=== PATIENT | female | born 1940 | race Caucasian/White ===

== ENCOUNTER 2016-08-22 15:14 | Emergency (ER) | payer OTHER, MEDICARE ==
--- NOTE | 2016-08-22 18:13 | ED ORDER SUMMARY ---
..... Patient: KELLIE HICKS OrderSheet [facility] VisitID: [id number] [address] [place] [address] 75y, F Registration Date/Time: 08/22/2016 ORDER SHEET Weight: 81.6 kg (stated) Allergies: Iodine, "all pain meds" GENERAL ORDERS: Chest 2V Urgent (16:35 08/22/2016 William PARKS) (Ack 16:40 Sd) (17:35 KWilliams R.N.) - (NEEDS CATH UA AND I NEED TO LOOK AT PERINEUM) (16:36 08/22/2016 William PARKS) (17:08 Mercy R.N.) CBC w Diff Urgent (16:36 08/22/2016 William PARKS) (Ack 16:40 Sd) (17:35 Mercy R.N.) UA-Culture if indicated Urgent (16:36 08/22/2016 William PARKS) (Ack 16:40 Sd) (17:08 Deysiams R.N.) CMP Urgent (16:36 08/22/2016 William PARKS) (Ack 16:40 Sd) (17:35 KWkarlaams R.N.) ESR Urgent (16:37 08/22/2016 William PARKS) (Ack 16:40 Sd) (17:35 Deysiams R.N.) MEDICATION ORDERS: IV FLUIDS: ORDER SHEET NOTES: [Electronically signed by Jayce Aceves R.N. (09:04 08/23/2016)] [Electronically signed by Den Rodriguez MD (14:40 08/24/2016)] [Electronically locked/signed by Jayce Aceves R.N. (09:04 08/23/2016)]
--- NOTE | 2016-08-22 18:13 | ED CLINICAL REPORT ---
Clinical Report - Physicians/Mid Levels [facility] [address] [place] [address] 08/22/2016 15:15 Patient: KELLIE KAUR Time Seen: 16:06. Historian- patient and family. Evaluation limited Very tangential historian. HISTORY OF PRESENT ILLNESS Chief Complaint: COUGH, PERINEAL SKIN RASH AND RIGHT ORIENTAL ORTHODOX PAIN. This started several weeks ago; Ms Kaur has 5 unrelated complaints and is still present. (unknown onset). At its maximum, severity described as moderate. When seen in the E.D., severity described as moderate. Modifying factors- (skin tenderness worse with palpation). The patient has had fatigue and weakness. (1. Cough and weak achy for weeks 2. Sore between legs - chronic. Pt arrived with 8 sets of depends on so that she would not wet her son's car. 3. Hurts to chew "infection" on adrenal gland and tender R jew). Similar symptoms previously: None. REVIEW OF SYSTEMS No fever, sore throat, difficulty breathing, chest pain or abdominal pain. No nausea or vomiting. She has had a cough. She has had difficulty with urination (incontinence), with pain during urination. She has had skin rash (perineal). She has had a headache (R jew with tenderness). PAST HISTORY PCP: Dylan BIRCH/Hilary PAST HISTORY See nurses notes. PROBLEMS: GI Bleeding. Gastroesophageal Reflux Disease. DVT - Deep Venous Thrombosis. CVA - Cerebrovascular Accident. --16:45 Rajani Bower RMindiN. ADDITIONAL SURGERIES: Filter. SOCIAL HISTORY Never smoker. No drug use. ADDITIONAL NOTES The nursing notes have been reviewed. PHYSICAL EXAM Vital Signs: 08/22/2016 18:42 BP: 149/90. HR: 80. RR: 16. O2 saturation: 98%. Temp: 97.7 F. 08/22/2016 16:06 BP: 158/116. HR: 72. RR: 20. O2 saturation: 100%. Appearance: (Talkative elderly woman. Fairly well dressed). Eyes: Eyes normal inspection. ENT: Pharynx normal. (Some R jew tenderness by history). Neck: Normal inspection. CVS: Normal heart rate and rhythm. Heart sounds normal. Respiratory: No respiratory distress. Breath sounds normal. Abdomen: No visible injury. Soft and nontender. Back: Normal inspection. : (perineal skin is quite red). Skin: Skin warm. Normal skin color. Extremities: Extremities exhibit normal ROM. Neuro: No alteration in mental status. No cranial nerve deficit. No motor deficit. LABS, X-RAYS, AND EKG Chest X-ray: Infiltrate present. Normal Chest X-Ray. The X-rays were interpreted by the radiologist and contemporaneously by me and discussed with the radiologist. Laboratory Tests: UA-Culture if indicated: (CANDIE: 08/22/2016 17:05) ( MsgRcvd 08/22/2016 17:19) Final results Test Result Flag Units (Reference) URINE COLOR YELLOW URINE APPEARANCE CLEAR URINE GLUCOSE NEGATIVE (NEGATIVE) URINE BILIRUBIN NEGATIVE (NEGATIVE) URINE KETONE NEGATIVE (NEGATIVE) URINE SPECIFIC GRAVITY 1.025 (1.010-1.030) URINE PH 6.0 (5.0-8.0) URINE PROTEIN NEGATIVE (NEGATIVE) URINE UROBILINOGEN 0.2 EU/dL (0.2-1.0) URINE NITRITE NEGATIVE (NEGATIVE) URINE BLOOD NEGATIVE (NEGATIVE) URINE LEUK ESTERASE NEGATIVE (NEGATIVE) URINE RBC 1-3 rbc/hpf (0-1) URINE WBC 3-5 wbc/hpf (0-1) URINE EPITHELIAL CELLS 0-1 EPI/hpf (0-5) URINE BACTERIA MODERATE (2+ TO 3+) (NONE SEEN) URINE COMMENT CULTURE INDICATED 2+ MUCOUSURINE CULTURES ARE SET-UP BASED ON THE FOLLOWING CRITERIA:POSITIVE NITRITEPOSITIVE LEUKOCYTE ESTERASEGREATER THAN 10 WHITE BLOOD CELLSMODERATE (2+) OR GREATER BACTERIA ESR: (CANDIE: 08/22/2016 16:50) ( MsgRcvd 08/22/2016 17:15) Final results Test Result Flag Units (Reference) SED RATE WESTERGREN 37 H mm/hr (0-30) CBC w Diff: (CANDIE: 08/22/2016 16:50) ( MsgRcvd 08/22/2016 16:56) Final results Test Result Flag Units (Reference) WHITE BLOOD COUNT 7.9 K/uL (4.5-11.5) RED BLOOD COUNT 4.67 M/uL (4.00-5.20) HEMOGLOBIN 14.2 gm/dL (12.0-16.0) HEMATOCRIT 42.6 % (36.0-46.0) MEAN CELL VOLUME 91 fL (80-100) MEAN CORPUSCULAR HGB 31 pg (26-34) MEAN CORPUSCULAR HGB CONC 33 g/dL (31-37) RED CELL DISTRIBUTION WIDTH 12.3 % (11.6-14.8) PLATELET COUNT 221 K/uL (150-400) NEUTROPHIL % 78.5 H % (50-75) LYMPH % 13.4 L % (25-40) MONO % 6.6 % (3-14) EOSINOPHIL % 1.2 % (0-4) BASOPHIL % 0.3 % (0-2) CMP: (CANDIE: 08/22/2016 16:50) ( MsgRcvd 08/22/2016 17:13) Final results Test Result Flag Units (Reference) GLUCOSE 184 H mg/dL (70-110) BUN 18 mg/dL (7-18) CREATININE 0.6 mg/dL (0.6-1.3) Estimated GFR >60 mL/min Estimated GFR- >60 mL/min Note: Persistent reduction over 3 months in eGFR<60 mL/min/1.73 m2 defines CKD. Patients with eGFR values>=60 mL/min/1.73 m2 may also have CKD if evidence ofpersistent proteinuria. Additional information may be foundat www.kidney.org. SODIUM 138 mmol/L (136-145) POTASSIUM 3.8 mmol/L (3.5-5.1) CHLORIDE 100 mmol/L (98-107) CARBON DIOXIDE 26 mmol/L (21-32) CALCIUM 9.2 mg/dL (8.5-10.1) TOTAL PROTEIN 6.9 g/dL (6.4-8.2) ALBUMIN 3.4 g/dL (3.3-5.0) BILIRUBIN, TOTAL 1.0 mg/dL (0.0-1.0) ALKALINE PHOSPHATASE 127 H U/L (46-116) AST (SGOT) 27 U/L (15-37) ALT (SGPT) 25 U/L (12-78) Culture, Urine: (CANDIE: 08/22/2016 17:05) ( MsgRcvd 08/24/2016 09:54) Final results Test Result Flag Units (Reference) CULTURE, URINE DATE: 08/24/16 NO GROWTH AT:: NO GROWTH AT 2 DAYS PRELIM REPORT: FINAL REPORT . PROGRESS AND PROCEDURES Course of Care: No gross metabolic abnormalities, pt does have a small L sided infiltrate, definite perineal skin irritation. No temporal arteritis or polymyalgia rheumatica. Pt likely needs increased monitoring of ADLs with help with bathing and perineal care. This is discussed with the patient and her son. Disposition: Discharged. Condition: stable. CLINICAL IMPRESSION Bronchitis. Intertrigo INSTRUCTIONS (YOU HAVE A SKIN YEAST INFECTIOIN BATHE DAILY, ONLY ONE PAIR OF DEPENDS, YOU MIGHT NEED HELP WITH SELF CARE. YOU HAVE A BRONCHITIS NO URINE INFECTION NO DANGEROUS CAUSE OF THE ORIENTAL ORTHODOX PAIN YOUR CHEST XRAY [showed an infliltrate - verbally told to patient by me at the time of discharge.). Prescription Medications: Zithromax 250 mg tablets: take 2 orally today, followed by 1 daily for the next 4 days. No refills. Substitution is permissible. Lotrisone 1% / 0.05% cream: apply to affected areas three times daily. Dispense thirty (30) grams. No refills. Understanding of the discharge instructions verbalized by patient. Follow-up with: Hay Moise MD, [facility], , [place] [address]; Marilyn Meeks MD, [facility], , [place] [address] Follow up. Reason for referral: YOU ASKED FOR A NEW PRIMARY CARE DRMindi (Electronically signed by Den Rodriguez MD 08/24/2016 14:40)
--- NOTE | 2016-08-22 18:13 | ED NURSING NOTES ---
Clinical Report - Nurses [facility] [address] [place] [address] 08/22/2016 15:15 Patient: KELLIE HICKS TRIAGE Triage time 16:06. Acuity: LEVEL 5. Chief Complaint: (burning maggi area.). TYRA COMA SCORE: [place] Coma Scale: 15- eyes open spontaneously (4); best verbal response- oriented x 4 (5); best motor response- obeys commands (6). --16:21 Keren Alexandre R.N. 16:06 08/22/16. BP: 158/116. HR: 72. RR: 20. O2 saturation: 100%. Additional comments: RA, talking non-stop 100%. Pain located in left ankle, maggi area. --16:21 Keren Alexandre R.N. Weight: 81.6 kg stated. Height/Length: 63 inches Per Patient. BMI: 31.9. --16:16 Keren Alexandre R.N. Medications Ramipril Oral 10 mg, daily. --16:15 Keren Alexandre R.N. Allergies Iodine. --16:14 Keren Alexandre R.N. "all pain meds". --16:14 Keren Alexandre R.N. History Historian: patient. Onset. (Pt is quite rambling, hard to pin down what exactly is her main concern is but she is stating "burning vaginits", left ankle pain, not being able to eat as it goes "straight throught" and an "adrenal gland infection". 16:11). ( Pt had no less than eight (8) attends on. Outer 7 layers were dry. Maggi area is quite red and excoriated.). PAST MEDICAL HX: ( Pt very poor historian.). FALL RISK ASSESSMENT: Fall risk assessment completed. No fall risk identified. NUTRITIONAL RISK ASSESSMENT: The nutritional risk assessment revealed no deficiencies. FUNCTIONAL ASSESSMENT: Functional assessment: no impairments noted. LEARNING NEEDS ASSESSMENT: The learning needs assessment revealed no barriers. SKIN INTEGRITY ASSESSMENT: Skin integrity risk assessment completed. No skin integrity risk identified. --16:21 Keren Alexandre R.N. Assessment The patient states feels the same. --16:21 Keren Alexandre R.N. Interventions ID band on patient. --16:21 Keren Alexandre R.N. NURSING PROGRESS NOTES 17:08 08/22/16. Patient ID band checked for patient name and birthdate: patient confirmed. Instructions provided to collect clean catch urine and patient verbalized understanding. Catheterized urine collected with return of yellow-colored clear urine; odor is normal; sample sent to lab for urinalysis and culture. Specimen labeled in the presence of the patient. --17:08 Richelle Celaya R.N. The plan of care for this patient has been created. Head of bed elevated. Call light placed in reach. Bed placed in lowest position. Brakes of bed on. Patient ready for evaluation- chart flagged. --17:08 Richelle Celaya R.N. DISPOSITION / DISCHARGE 18:42 08/22/16. Departure time: 1841. Condition at departure: improved and stable. Ability to learn limited by dementia; teaching performed with the family. Learning barriers note: son. By both RN and MD. Reviewed medication(s) dosing and course information. Prescription(s) given to the territory sales manager medical. Family verbalized understanding. Written instructions provided in Brazilian. The patient was discharged by the physician. She was discharged home and accompanied by family. She left the Emergency Department in a wheelchair and via private vehicle. Family member driving. --18:51 Richelle Celaya R.N. 18:42 08/22/16. BP: 149/90. HR: 80. RR: 16. O2 saturation: 98%. Temp: 97.7 F. Pain level now 0/10. --18:51 Richelle Celaya R.N. Locked/Released at 08/23/2016 9:04 by Jayce Aceves R.N.
--- NOTE | 2016-08-22 18:13 | ED ORDER SUMMARY ---
..... Patient: KELLIE HICKS OrderSheet [facility] VisitID: [id number] [address] [place] [address] 75y, F Registration Date/Time: 08/22/2016 ORDER SHEET Weight: 81.6 kg (stated) Allergies: Iodine, "all pain meds" GENERAL ORDERS: Chest 2V Urgent (16:35 08/22/2016 William PARKS) (Ack 16:40 Sd) (17:35 KWilliams R.N.) - (NEEDS CATH UA AND I NEED TO LOOK AT PERINEUM) (16:36 08/22/2016 William PARKS) (17:08 Mercy R.N.) CBC w Diff Urgent (16:36 08/22/2016 William PARKS) (Ack 16:40 Sd) (17:35 Mercy R.N.) UA-Culture if indicated Urgent (16:36 08/22/2016 William PARKS) (Ack 16:40 Sd) (17:08 Deysiams R.N.) CMP Urgent (16:36 08/22/2016 William PARKS) (Ack 16:40 Sd) (17:35 KWkarlaams R.N.) ESR Urgent (16:37 08/22/2016 William PARKS) (Ack 16:40 Sd) (17:35 Deysiams R.N.) MEDICATION ORDERS: IV FLUIDS: ORDER SHEET NOTES: [Electronically signed by Jayce Aceves R.N. (09:04 08/23/2016)] [Electronically signed by Den Rodriguez MD (14:40 08/24/2016)] [Electronically locked/signed by Jayce Aceves R.N. (09:04 08/23/2016)]
--- NOTE | 2016-08-22 18:13 | ED NURSING NOTES ---
Clinical Report - Nurses [facility] [address] [place] [address] 08/22/2016 15:15 Patient: KELLIE HICKS TRIAGE Triage time 16:06. Acuity: LEVEL 5. Chief Complaint: (burning maggi area.). TYRA COMA SCORE: [place] Coma Scale: 15- eyes open spontaneously (4); best verbal response- oriented x 4 (5); best motor response- obeys commands (6). --16:21 Keren Alexandre R.N. 16:06 08/22/16. BP: 158/116. HR: 72. RR: 20. O2 saturation: 100%. Additional comments: RA, talking non-stop 100%. Pain located in left ankle, maggi area. --16:21 Keren Alexandre R.N. Weight: 81.6 kg stated. Height/Length: 63 inches Per Patient. BMI: 31.9. --16:16 Keren Alexandre R.N. Medications Ramipril Oral 10 mg, daily. --16:15 Keren Alexandre R.N. Allergies Iodine. --16:14 Keren Alexandre R.N. "all pain meds". --16:14 Keren Alexandre R.N. History Historian: patient. Onset. (Pt is quite rambling, hard to pin down what exactly is her main concern is but she is stating "burning vaginits", left ankle pain, not being able to eat as it goes "straight throught" and an "adrenal gland infection". 16:11). ( Pt had no less than eight (8) attends on. Outer 7 layers were dry. Maggi area is quite red and excoriated.). PAST MEDICAL HX: ( Pt very poor historian.). FALL RISK ASSESSMENT: Fall risk assessment completed. No fall risk identified. NUTRITIONAL RISK ASSESSMENT: The nutritional risk assessment revealed no deficiencies. FUNCTIONAL ASSESSMENT: Functional assessment: no impairments noted. LEARNING NEEDS ASSESSMENT: The learning needs assessment revealed no barriers. SKIN INTEGRITY ASSESSMENT: Skin integrity risk assessment completed. No skin integrity risk identified. --16:21 Keren Alexandre R.N. Assessment The patient states feels the same. --16:21 Keren Alexandre R.N. Interventions ID band on patient. --16:21 Keren Alexandre R.N. NURSING PROGRESS NOTES 17:08 08/22/16. Patient ID band checked for patient name and birthdate: patient confirmed. Instructions provided to collect clean catch urine and patient verbalized understanding. Catheterized urine collected with return of yellow-colored clear urine; odor is normal; sample sent to lab for urinalysis and culture. Specimen labeled in the presence of the patient. --17:08 Richelle Celaya R.N. The plan of care for this patient has been created. Head of bed elevated. Call light placed in reach. Bed placed in lowest position. Brakes of bed on. Patient ready for evaluation- chart flagged. --17:08 Richelle Celaya R.N. DISPOSITION / DISCHARGE 18:42 08/22/16. Departure time: 1841. Condition at departure: improved and stable. Ability to learn limited by dementia; teaching performed with the family. Learning barriers note: son. By both RN and MD. Reviewed medication(s) dosing and course information. Prescription(s) given to the cabinetmaker maintenance. Family verbalized understanding. Written instructions provided in Belgian. The patient was discharged by the physician. She was discharged home and accompanied by family. She left the Emergency Department in a wheelchair and via private vehicle. Family member driving. --18:51 Richelle Celaya R.N. 18:42 08/22/16. BP: 149/90. HR: 80. RR: 16. O2 saturation: 98%. Temp: 97.7 F. Pain level now 0/10. --18:51 Richelle Celaya R.N. Locked/Released at 08/23/2016 9:04 by Jayce Aceves R.N.
--- NOTE | 2016-08-22 18:13 | ED CLINICAL REPORT ---
Clinical Report - Physicians/Mid Levels [facility] [address] [place] [address] 08/22/2016 15:15 Patient: KELLIE KAUR Time Seen: 16:06. Historian- patient and family. Evaluation limited Very tangential historian. HISTORY OF PRESENT ILLNESS Chief Complaint: COUGH, PERINEAL SKIN RASH AND RIGHT HINDUISM PAIN. This started several weeks ago; Ms Kaur has 5 unrelated complaints and is still present. (unknown onset). At its maximum, severity described as moderate. When seen in the E.D., severity described as moderate. Modifying factors- (skin tenderness worse with palpation). The patient has had fatigue and weakness. (1. Cough and weak achy for weeks 2. Sore between legs - chronic. Pt arrived with 8 sets of depends on so that she would not wet her son's car. 3. Hurts to chew "infection" on adrenal gland and tender R samaritan). Similar symptoms previously: None. REVIEW OF SYSTEMS No fever, sore throat, difficulty breathing, chest pain or abdominal pain. No nausea or vomiting. She has had a cough. She has had difficulty with urination (incontinence), with pain during urination. She has had skin rash (perineal). She has had a headache (R samaritan with tenderness). PAST HISTORY PCP: Dylan BIRCH/Hilary PAST HISTORY See nurses notes. PROBLEMS: GI Bleeding. Gastroesophageal Reflux Disease. DVT - Deep Venous Thrombosis. CVA - Cerebrovascular Accident. --16:45 Rajani Bower RMindiN. ADDITIONAL SURGERIES: Filter. SOCIAL HISTORY Never smoker. No drug use. ADDITIONAL NOTES The nursing notes have been reviewed. PHYSICAL EXAM Vital Signs: 08/22/2016 18:42 BP: 149/90. HR: 80. RR: 16. O2 saturation: 98%. Temp: 97.7 F. 08/22/2016 16:06 BP: 158/116. HR: 72. RR: 20. O2 saturation: 100%. Appearance: (Talkative elderly woman. Fairly well dressed). Eyes: Eyes normal inspection. ENT: Pharynx normal. (Some R samaritan tenderness by history). Neck: Normal inspection. CVS: Normal heart rate and rhythm. Heart sounds normal. Respiratory: No respiratory distress. Breath sounds normal. Abdomen: No visible injury. Soft and nontender. Back: Normal inspection. : (perineal skin is quite red). Skin: Skin warm. Normal skin color. Extremities: Extremities exhibit normal ROM. Neuro: No alteration in mental status. No cranial nerve deficit. No motor deficit. LABS, X-RAYS, AND EKG Chest X-ray: Infiltrate present. Normal Chest X-Ray. The X-rays were interpreted by the radiologist and contemporaneously by me and discussed with the radiologist. Laboratory Tests: UA-Culture if indicated: (CANDIE: 08/22/2016 17:05) ( MsgRcvd 08/22/2016 17:19) Final results Test Result Flag Units (Reference) URINE COLOR YELLOW URINE APPEARANCE CLEAR URINE GLUCOSE NEGATIVE (NEGATIVE) URINE BILIRUBIN NEGATIVE (NEGATIVE) URINE KETONE NEGATIVE (NEGATIVE) URINE SPECIFIC GRAVITY 1.025 (1.010-1.030) URINE PH 6.0 (5.0-8.0) URINE PROTEIN NEGATIVE (NEGATIVE) URINE UROBILINOGEN 0.2 EU/dL (0.2-1.0) URINE NITRITE NEGATIVE (NEGATIVE) URINE BLOOD NEGATIVE (NEGATIVE) URINE LEUK ESTERASE NEGATIVE (NEGATIVE) URINE RBC 1-3 rbc/hpf (0-1) URINE WBC 3-5 wbc/hpf (0-1) URINE EPITHELIAL CELLS 0-1 EPI/hpf (0-5) URINE BACTERIA MODERATE (2+ TO 3+) (NONE SEEN) URINE COMMENT CULTURE INDICATED 2+ MUCOUSURINE CULTURES ARE SET-UP BASED ON THE FOLLOWING CRITERIA:POSITIVE NITRITEPOSITIVE LEUKOCYTE ESTERASEGREATER THAN 10 WHITE BLOOD CELLSMODERATE (2+) OR GREATER BACTERIA ESR: (CANDIE: 08/22/2016 16:50) ( MsgRcvd 08/22/2016 17:15) Final results Test Result Flag Units (Reference) SED RATE WESTERGREN 37 H mm/hr (0-30) CBC w Diff: (CANDIE: 08/22/2016 16:50) ( MsgRcvd 08/22/2016 16:56) Final results Test Result Flag Units (Reference) WHITE BLOOD COUNT 7.9 K/uL (4.5-11.5) RED BLOOD COUNT 4.67 M/uL (4.00-5.20) HEMOGLOBIN 14.2 gm/dL (12.0-16.0) HEMATOCRIT 42.6 % (36.0-46.0) MEAN CELL VOLUME 91 fL (80-100) MEAN CORPUSCULAR HGB 31 pg (26-34) MEAN CORPUSCULAR HGB CONC 33 g/dL (31-37) RED CELL DISTRIBUTION WIDTH 12.3 % (11.6-14.8) PLATELET COUNT 221 K/uL (150-400) NEUTROPHIL % 78.5 H % (50-75) LYMPH % 13.4 L % (25-40) MONO % 6.6 % (3-14) EOSINOPHIL % 1.2 % (0-4) BASOPHIL % 0.3 % (0-2) CMP: (CANDIE: 08/22/2016 16:50) ( MsgRcvd 08/22/2016 17:13) Final results Test Result Flag Units (Reference) GLUCOSE 184 H mg/dL (70-110) BUN 18 mg/dL (7-18) CREATININE 0.6 mg/dL (0.6-1.3) Estimated GFR >60 mL/min Estimated GFR- >60 mL/min Note: Persistent reduction over 3 months in eGFR<60 mL/min/1.73 m2 defines CKD. Patients with eGFR values>=60 mL/min/1.73 m2 may also have CKD if evidence ofpersistent proteinuria. Additional information may be foundat www.kidney.org. SODIUM 138 mmol/L (136-145) POTASSIUM 3.8 mmol/L (3.5-5.1) CHLORIDE 100 mmol/L (98-107) CARBON DIOXIDE 26 mmol/L (21-32) CALCIUM 9.2 mg/dL (8.5-10.1) TOTAL PROTEIN 6.9 g/dL (6.4-8.2) ALBUMIN 3.4 g/dL (3.3-5.0) BILIRUBIN, TOTAL 1.0 mg/dL (0.0-1.0) ALKALINE PHOSPHATASE 127 H U/L (46-116) AST (SGOT) 27 U/L (15-37) ALT (SGPT) 25 U/L (12-78) Culture, Urine: (CANDIE: 08/22/2016 17:05) ( MsgRcvd 08/24/2016 09:54) Final results Test Result Flag Units (Reference) CULTURE, URINE DATE: 08/24/16 NO GROWTH AT:: NO GROWTH AT 2 DAYS PRELIM REPORT: FINAL REPORT . PROGRESS AND PROCEDURES Course of Care: No gross metabolic abnormalities, pt does have a small L sided infiltrate, definite perineal skin irritation. No temporal arteritis or polymyalgia rheumatica. Pt likely needs increased monitoring of ADLs with help with bathing and perineal care. This is discussed with the patient and her son. Disposition: Discharged. Condition: stable. CLINICAL IMPRESSION Bronchitis. Intertrigo INSTRUCTIONS (YOU HAVE A SKIN YEAST INFECTIOIN BATHE DAILY, ONLY ONE PAIR OF DEPENDS, YOU MIGHT NEED HELP WITH SELF CARE. YOU HAVE A BRONCHITIS NO URINE INFECTION NO DANGEROUS CAUSE OF THE HINDUISM PAIN YOUR CHEST XRAY [showed an infliltrate - verbally told to patient by me at the time of discharge.). Prescription Medications: Zithromax 250 mg tablets: take 2 orally today, followed by 1 daily for the next 4 days. No refills. Substitution is permissible. Lotrisone 1% / 0.05% cream: apply to affected areas three times daily. Dispense thirty (30) grams. No refills. Understanding of the discharge instructions verbalized by patient. Follow-up with: Hay Moise MD, [facility], , [place] [address]; Marilyn Meeks MD, [facility], , [place] [address] Follow up. Reason for referral: YOU ASKED FOR A NEW PRIMARY CARE DRMindi (Electronically signed by Den Rodriguez MD 08/24/2016 14:40)
--- NOTE | 2016-08-22 18:43 | DIAGNOSTIC IMAGING REPORT ---
PROCEDURE: XR CHEST 2 VIEW INDICATION: COUGH TECHNIQUE: PA and lateral view. COMPARISON: None. FINDINGS: Small left basilar infiltrate Cardiovascular structures are normal. Moderate degenerative changes of the spine. IMPRESSION: 1. Left basilar pneumonia 2. Results discussed with Dr. Rodriguez
--- NOTE | 2016-08-24 14:40 | ED DISCHARGE INSTRUCTIONS ---
Patient: KELLIE HICKS General Instructions [facility] VisitID: [id number] [address] [place] [address] 75y, F Registration Date/Time: 08/22/2016 Bronchitis. Intertrigo INSTRUCTIONS (YOU HAVE A SKIN YEAST INFECTIOIN BATHE DAILY, ONLY ONE PAIR OF DEPENDS, YOU MIGHT NEED HELP WITH SELF CARE. YOU HAVE A BRONCHITIS NO URINE INFECTION NO DANGEROUS CAUSE OF THE [place]NABAPTISM PAIN YOUR CHEST XRAY [showed an infliltrate - verbally told to patient by me at the time of discharge.). Prescription Medications: Zithromax 250 mg tablets: take 2 orally today, followed by 1 daily for the next 4 days. No refills. Substitution is permissible. Lotrisone 1% / 0.05% cream: apply to affected areas three times daily. Dispense thirty (30) grams. No refills. Understanding of the discharge instructions verbalized by patient. Follow-up with: Hay Moise MD, [facility], [address] [place] [address], [facility], [address] [place] [address]; Marilyn Meeks MD, [facility], [address] [place] [address], [facility], [address] [place] [address] Follow up. Reason for referral: YOU ASKED FOR A NEW PRIMARY CARE DR. ADDITIONAL INFORMATION Bronchitis (Adult: Abx Tx) BRONCHITIS is an infection of the air passages (bronchial tubes). It often occurs during the common cold. Symptoms include cough with mucus (phlegm) and low-grade fever. Bronchitis usually lasts 7-14 days. Mild cases can be treated with simple home remedies. More severe infection is treated with an antibiotic. Home Care: If symptoms are severe, rest at home for the first 2-3 days. When you resume activity, don't let yourself get too tired. Do not smoke. Avoid being exposed to the smoke of others. You may use acetaminophen (Tylenol) or ibuprofen (Motrin, Advil) to control fever or pain, unless another medicine was prescribed for this. [NOTE: If you have chronic liver or kidney disease or ever had a stomach ulcer or GI bleeding, talk with your doctor before using these medicines.] Your appetite may be poor, so a light diet is fine. Avoid dehydration by drinking 6-8 glasses of fluids per day (water, soft, drinks, juices, tea, soup, etc.). Extra fluids will help loosen secretions in the lungs. Zxff-nnj-nerunsn cough medicines that containdextromethorphan(such as Robitussin DM) and decongestants (Actifed or Sudafed) may help relieve cough and congestion. [NOTE: Do not use decongestants if you have high blood pressure.] Finish all antibiotic medicine, even if you are feeling better after only a few days. Follow Up with your doctor or as directed if you dont start to feel better after three days. [NOTE: If you are age 65 or older, or if you have chronic asthma or COPD, we recommend a PNEUMOCOCCAL VACCINATION every five years and a yearly INFLUENZAVACCINATION (FLU-SHOT) every . Ask your doctor about this. If you had an X-ray, a radiologist will review it. You will be notified of any new findings that may affect your care.] Get Prompt Medical Attention if any of the following occur: Fever over 100.4F (38.0C) for more than three days Trouble breathing, wheezing or pain with breathing Coughing up blood or increased amounts of colored sputum Weakness, drowsiness, headache, facial pain, ear pain or a stiff neck Fungal Infection, General [Skin] Fungal skin infections (including what is called yeast infection) are caused by several different types of fungi. The most common fungal infection is Jessi. Athletes foot, ringworm and a groin rash called jock itch are caused by other types of fungi. Infants and people with weakened immune system (Diabetes, HIV disease or cancer, treatment with chemotherapy or immune suppressants) are more prone to fungal infections. These can spread to the rest of the body and cause severe illness. Common fungal infections are treated with creams on the skin or oral medicine. Home Care: If you were prescribed a cream, it should be applied exactly as directed. It may take a week before the fungus starts to go away and it can take 2 to 4 weeks to fully clear. To prevent a recurrence, continue the medicine until the rash is all gone. If you were prescribed an oral medicine, read the patient information. These are strong medicines and can have important side effects. Follow Up with your doctor or as advised by our staff if the rash is not starting to improve after 10 days of treatment or if the rash spreads to other areas of the body. Get Prompt Medical Attention if any of the following occur: Increasing redness around the rash Increasing scalp swelling Fluid draining from the rash Difficulty or pain with swallowing Appearance of new white spots in the mouth or throat Fever of 100.4 F (38 C) or higher, or as directed by your healthcare provider Clotrimazole Topical solution What is this medicine? CLOTRIMAZOLE (kloe TRIM a zole) is an antifungal medicine. It is used to treat certain kinds of fungal or yeast infections of the skin. How should I use this medicine? This medicine is for external use only. Do not take by mouth. Follow the directions on the prescription label. Wash your hands before and after use. If treating a hand or nail infection, wash hands before use only. Apply a thin layer to the affected area and a small amount to the surrounding area. Rub in gently. Do not get this medicine in your eyes. If you do, rinse out with plenty of cool tap water. Use this medicine at regular intervals. Do not use more often than directed. Finish the full course prescribed by your doctor or health day care attendant even if you think you are better. Do not stop using except on your doctor's advice. Talk to your factory hand regarding the use of this medicine in children. While this drug has been used in young children for selected conditions, precautions do apply. What side effects may I notice from receiving this medicine? Side effects that usually do not require medical attention (report to your doctor or health day care attendant if they continue or are bothersome): allergic reactions like skin rash, itching or hives, swelling of the face, lips, or tongue skin irritation, burning What may interact with this medicine? amphotericin b topical products that have nystatin What if I miss a dose? If you miss a dose, use it as soon as you can. If it is almost time for your next dose, use only that dose. Do not use double or extra doses. Where should I keep my medicine? Keep out of the reach of children. Store at room temperature between 2 to 30 degrees C (36 to 86 degrees F). Do not freeze. Throw away any unused medicine after the expiration date. What should I tell my health care provider before I take this medicine? They need to know if you have any of these conditions: an unusual or allergic reaction to clotrimazole, other antifungals or medicines, foods, dyes or preservatives or trying to get breast-feeding What should I watch for while using this medicine? Tell your doctor or health day care attendant if your symptoms do not start to improve after 7 days. Do not self-medicate for more than one week. If you are using this medicine for 'jock itch' be sure to dry the groin completely after bathing. Do not wear underwear that is tight-fitting or made from synthetic fibers like denis or nylon. Wear loose-fitting, cotton underwear. If you are using this medicine for athlete's foot be sure to dry your feet carefully after bathing, especially between the toes. Do not wear socks made from wool or synthetic materials like denis or nylon. Wear clean cotton socks and change them at least once a day, change them more if your feet sweat a lot. Also, try to wear sandals or shoes that are well-ventilated. You have been given the following additional information: Bronchitis, Antiobiotic Treatment (Adult) Fungal Infection, Skin [General] Clotrimazole Topical solution (Electronically signed by Den Rodriguez MD 08/24/2016 14:40)
--- NOTE | 2016-08-24 14:40 | ED DISCHARGE INSTRUCTIONS ---
Patient: KELLIE HICKS General Instructions [facility] VisitID: [id number] [address] [place] [address] 75y, F Registration Date/Time: 08/22/2016 Bronchitis. Intertrigo INSTRUCTIONS (YOU HAVE A SKIN YEAST INFECTIOIN BATHE DAILY, ONLY ONE PAIR OF DEPENDS, YOU MIGHT NEED HELP WITH SELF CARE. YOU HAVE A BRONCHITIS NO URINE INFECTION NO DANGEROUS CAUSE OF THE ANGL[place] PAIN YOUR CHEST XRAY [showed an infliltrate - verbally told to patient by me at the time of discharge.). Prescription Medications: Zithromax 250 mg tablets: take 2 orally today, followed by 1 daily for the next 4 days. No refills. Substitution is permissible. Lotrisone 1% / 0.05% cream: apply to affected areas three times daily. Dispense thirty (30) grams. No refills. Understanding of the discharge instructions verbalized by patient. Follow-up with: Hay Moise MD, [facility], [address] [place] [address], [facility], [address] [place] [address]; Marilyn Meeks MD, [facility], [address] [place] [address], [facility], [address] [place] [address] Follow up. Reason for referral: YOU ASKED FOR A NEW PRIMARY CARE DR. ADDITIONAL INFORMATION Bronchitis (Adult: Abx Tx) BRONCHITIS is an infection of the air passages (bronchial tubes). It often occurs during the common cold. Symptoms include cough with mucus (phlegm) and low-grade fever. Bronchitis usually lasts 7-14 days. Mild cases can be treated with simple home remedies. More severe infection is treated with an antibiotic. Home Care: If symptoms are severe, rest at home for the first 2-3 days. When you resume activity, don't let yourself get too tired. Do not smoke. Avoid being exposed to the smoke of others. You may use acetaminophen (Tylenol) or ibuprofen (Motrin, Advil) to control fever or pain, unless another medicine was prescribed for this. [NOTE: If you have chronic liver or kidney disease or ever had a stomach ulcer or GI bleeding, talk with your doctor before using these medicines.] Your appetite may be poor, so a light diet is fine. Avoid dehydration by drinking 6-8 glasses of fluids per day (water, soft, drinks, juices, tea, soup, etc.). Extra fluids will help loosen secretions in the lungs. Cfzu-unq-evbjyyr cough medicines that containdextromethorphan(such as Robitussin DM) and decongestants (Actifed or Sudafed) may help relieve cough and congestion. [NOTE: Do not use decongestants if you have high blood pressure.] Finish all antibiotic medicine, even if you are feeling better after only a few days. Follow Up with your doctor or as directed if you dont start to feel better after three days. [NOTE: If you are age 65 or older, or if you have chronic asthma or COPD, we recommend a PNEUMOCOCCAL VACCINATION every five years and a yearly INFLUENZAVACCINATION (FLU-SHOT) every . Ask your doctor about this. If you had an X-ray, a radiologist will review it. You will be notified of any new findings that may affect your care.] Get Prompt Medical Attention if any of the following occur: Fever over 100.4F (38.0C) for more than three days Trouble breathing, wheezing or pain with breathing Coughing up blood or increased amounts of colored sputum Weakness, drowsiness, headache, facial pain, ear pain or a stiff neck Fungal Infection, General [Skin] Fungal skin infections (including what is called yeast infection) are caused by several different types of fungi. The most common fungal infection is Jessi. Athletes foot, ringworm and a groin rash called jock itch are caused by other types of fungi. Infants and people with weakened immune system (Diabetes, HIV disease or cancer, treatment with chemotherapy or immune suppressants) are more prone to fungal infections. These can spread to the rest of the body and cause severe illness. Common fungal infections are treated with creams on the skin or oral medicine. Home Care: If you were prescribed a cream, it should be applied exactly as directed. It may take a week before the fungus starts to go away and it can take 2 to 4 weeks to fully clear. To prevent a recurrence, continue the medicine until the rash is all gone. If you were prescribed an oral medicine, read the patient information. These are strong medicines and can have important side effects. Follow Up with your doctor or as advised by our staff if the rash is not starting to improve after 10 days of treatment or if the rash spreads to other areas of the body. Get Prompt Medical Attention if any of the following occur: Increasing redness around the rash Increasing scalp swelling Fluid draining from the rash Difficulty or pain with swallowing Appearance of new white spots in the mouth or throat Fever of 100.4 F (38 C) or higher, or as directed by your healthcare provider Clotrimazole Topical solution What is this medicine? CLOTRIMAZOLE (kloe TRIM a zole) is an antifungal medicine. It is used to treat certain kinds of fungal or yeast infections of the skin. How should I use this medicine? This medicine is for external use only. Do not take by mouth. Follow the directions on the prescription label. Wash your hands before and after use. If treating a hand or nail infection, wash hands before use only. Apply a thin layer to the affected area and a small amount to the surrounding area. Rub in gently. Do not get this medicine in your eyes. If you do, rinse out with plenty of cool tap water. Use this medicine at regular intervals. Do not use more often than directed. Finish the full course prescribed by your doctor or health senior resident care director even if you think you are better. Do not stop using except on your doctor's advice. Talk to your parking enforcer regarding the use of this medicine in children. While this drug has been used in young children for selected conditions, precautions do apply. What side effects may I notice from receiving this medicine? Side effects that usually do not require medical attention (report to your doctor or health senior resident care director if they continue or are bothersome): allergic reactions like skin rash, itching or hives, swelling of the face, lips, or tongue skin irritation, burning What may interact with this medicine? amphotericin b topical products that have nystatin What if I miss a dose? If you miss a dose, use it as soon as you can. If it is almost time for your next dose, use only that dose. Do not use double or extra doses. Where should I keep my medicine? Keep out of the reach of children. Store at room temperature between 2 to 30 degrees C (36 to 86 degrees F). Do not freeze. Throw away any unused medicine after the expiration date. What should I tell my health care provider before I take this medicine? They need to know if you have any of these conditions: an unusual or allergic reaction to clotrimazole, other antifungals or medicines, foods, dyes or preservatives or trying to get breast-feeding What should I watch for while using this medicine? Tell your doctor or health senior resident care director if your symptoms do not start to improve after 7 days. Do not self-medicate for more than one week. If you are using this medicine for 'jock itch' be sure to dry the groin completely after bathing. Do not wear underwear that is tight-fitting or made from synthetic fibers like denis or nylon. Wear loose-fitting, cotton underwear. If you are using this medicine for athlete's foot be sure to dry your feet carefully after bathing, especially between the toes. Do not wear socks made from wool or synthetic materials like denis or nylon. Wear clean cotton socks and change them at least once a day, change them more if your feet sweat a lot. Also, try to wear sandals or shoes that are well-ventilated. You have been given the following additional information: Bronchitis, Antiobiotic Treatment (Adult) Fungal Infection, Skin [General] Clotrimazole Topical solution (Electronically signed by Den Rodriguez MD 08/24/2016 14:40)
--- NOTE | 2016-08-24 14:41 | ED MED RECONCILIATION SUMMARY ---
Patient: KELLIE HICKS Medication Reconciliation Report [facility] VisitID: [id number] [address] [place] [address] 75y, F Registration Date/Time: 08/22/2016 Weight: 81.6 kg Height/Length: 63 in. BMI: 31.9 ALLERGIES: "all pain meds", Iodine The patient's Home Medications are listed below: THE FOLLOWING MEDICATIONS NEED TO BE RECONCILED: Ramipril Oral 10 mg, daily The source(s) of the original Home Medication information: Not obtained. The following Medications were given to the patient in the Emergency Department: None. The following Medications were prescribed to the patient: Zithromax 250 mg tablets: take 2 orally today, followed by 1 daily for the next 4 days. No refills. Substitution is permissible. -- Den Rodriguez MD Lotrisone 1% / 0.05% cream: apply to affected areas three times daily. Dispense thirty (30) grams. No refills. -- Den Rodriguez MD
--- NOTE | 2016-08-24 14:41 | ED MED RECONCILIATION SUMMARY ---
Patient: KELLIE HICKS Medication Reconciliation Report [facility] VisitID: [id number] [address] [place] [address] 75y, F Registration Date/Time: 08/22/2016 Weight: 81.6 kg Height/Length: 63 in. BMI: 31.9 ALLERGIES: "all pain meds", Iodine The patient's Home Medications are listed below: THE FOLLOWING MEDICATIONS NEED TO BE RECONCILED: Ramipril Oral 10 mg, daily The source(s) of the original Home Medication information: Not obtained. The following Medications were given to the patient in the Emergency Department: None. The following Medications were prescribed to the patient: Zithromax 250 mg tablets: take 2 orally today, followed by 1 daily for the next 4 days. No refills. Substitution is permissible. -- Den Rodriguez MD Lotrisone 1% / 0.05% cream: apply to affected areas three times daily. Dispense thirty (30) grams. No refills. -- Den Rodriguez MD
--- NOTE | 2016-08-24 14:41 | ED MAR SUMMARY ---
..... Medication Administration Record [facility] [address] [place], [place] [id number] Patient: KELLIE HICKS Visit ID: [id number] 75y, F Weight: 81.6 kg Height/Length: 63 in BMI: 31.9 ALLERGIES: "all pain meds", Iodine
--- NOTE | 2016-08-24 14:41 | ED MAR SUMMARY ---
..... Medication Administration Record [facility] [address] [place] [id number] Patient: KELLIE HICKS Visit ID: [id number] 75y, F Weight: 81.6 kg Height/Length: 63 in BMI: 31.9 ALLERGIES: "all pain meds", Iodine
== END 2016-08-22 18:42 | disposition home or self-care (01) ==
LOC: ED SRH 15:14
DX: J40 Bronchitis, not specified as acute or chronic (principal); L30.4 Erythema intertrigo; R32 Unspecified urinary incontinence; Z91.041 Radiographic dye allergy status
CPT/HCPCS: 81460; 90004; 90074; 90100; 90469; 95059; 95150